=== PATIENT | male | born 1990 | race Caucasian/White ===

== ENCOUNTER 2021-11-18 04:00 | Outpatient (CLI) | payer MEDICAID | END 2021-11-18 04:01 | disposition critical access hospital (66) | LOC: EMS 04:00 | DX: R56.9 Unspecified convulsions (principal); R51.9 Headache, unspecified | CPT/HCPCS: A0425; A0427 ==

== ENCOUNTER 2021-11-18 04:16 | Emergency (ER) | payer MEDICAID ==
--- NOTE | 2021-11-18 04:23 | ED Physician Documentation ---
History of Present Illness - Stated complaint Stated Complaint: SEIZURE/LOC - History obtained from History obtained from: Patient, Friend (girlfriend (in ED at bedside)) - History of Present Illness Timing: Prior to arrival Pain level max: 0 Pain level now: 0 - Additonal information Additional information: patient is visiting [facility] with girlfriend. He is BIBA for seizure. He does not have seizure history. 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 EMS arrived and found patient to be awake and alert, mildly confused but subsequently oriented x 3 en route to ED. Patient confirms he has no seizure history. Does not consume alcohol on a heavy nor regular basis. No recent injury. He had moderate/severe headache after the seizure but this has resolved en route to ED as well. He says he feels well except generalized body aches which he did not have before the seizure. Review of Systems Constitutional: reports: Reviewed and negative Eyes: reports: Reviewed and negative Cardiac: reports: Reviewed and negative Respiratory: reports: Reviewed and negative GI: reports: Reviewed and negative Musculoskeletal: reports: Back pain (aching upper/mid back pain across the back). 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 denies: Generalized weakness, Focal weakness, Numbness, Head injury PD PAST MEDICAL HISTORY - Past Medical History Past Medical History: No - Past Surgical History Past Surgical History: No - Present Medications Home Medications: Ambulatory Orders Medication Instructions Recorded Confirmed No Known Home Medications 11/18/21 11/18/21 - Allergies Allergies/Adverse Reactions: Allergies Allergy/AdvReac Type Severity Reaction Status Date / Time No Known Drug Allergies Allergy Verified 11/18/21 04:26 - Social History Does the pt have substance abuse?: No PD ED PE NORMAL - Vitals Vital signs reviewed: Yes - General General: Alert and oriented X 3, No acute distress, Well developed/nourished - HEENT HEENT: Atraumatic, PERRL, EOMI, Moist mucous membranes, Other (tongue bite (abrasions with echymosis) on bilateral lateral aspects of tongue) - Neck Neck: Supple, no meningeal sign, No bony TTP - Cardiac Cardiac: RRR, No murmur - Respiratory Respiratory: No respiratory distress, Clear bilaterally - Abdomen Abdomen: Soft, Non tender - Neuro Neuro: Alert and oriented X 3, 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 2-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0 BUN 15 Creatinine 1.1 Estimated GFR (MDRD) 79 L Glucose 145 H Calcium 9.4 Total Bilirubin 0.6 AST 29 ALT 22 Alkaline Phosphatase 52 Total Protein 7.8 Albumin 4.6 Globulin 3.2 Albumin/Globulin Ratio 1.4 Lipase 57 H - Rads (name of study) CT head Radiology: Prelim report reviewed, See rad report PD MEDICAL DECISION MAKING - ED course Complexity details: reviewed results, re-evaluated patient, considered differential, d/w patient ED course: unprovoked new-onset seizure. Unremarkable CTH and blood tests. He is in NAD for ED stay. We discussed results of tests and need for follow-up. Seizure precautions discussed, with emphasis on no driving until cleared by either his PMD or neurology. Departure - Departure Disposition: 01 Home, Self Care Clinical Impression: Grand mal seizure Condition: Good Instructions: ED Seizure New Onset Unk Cause Comments: The results of tonight's tests are unremarkable. The cause of your seizure is not apparent at this time, although this is a common with a seizure without other concerning signs/symptoms (such as fever, weakness, numbness). You should follow up with your primary care provider; you might need further evaluation such as EEG and referral to neurology. Please adhere to the seizure precautions that are outlined in the discharge instructions in this packet (do not drive until you are cleared to do so by either your primary care provider or a neurologist. Do not take baths nor swim alone.) Discharge Date/Time: 11/18/21 07:17
[2021-11-18 05:07] LABS: BASOPHILS % (AUTO) 0.1 %; EOSINOPHILS % (AUTO) 0.3 %; HCT - HEMATOCRIT 40.1 % (42.0-52.0); HGB - HEMOGLOBIN 14.6 g/dL (14.0-18.0); LYMPHOCYTES % (AUTO) 11.2 %; MEAN CORPUSCULAR HEMOGLOBIN 32.1 pg (27.0-31.0); MEAN CORPUSCULAR HGB CONC 36.4 g/dL (32.0-36.0); MEAN CORPUSCULAR VOLUME 88.1 fL (80.0-94.0); MEAN PLATELET VOLUME 9.9 fL (7.4-11.4); MONOCYTES # (AUTO) 0.5 10^3/uL (0.0-1.0); NEUTROPHILS # (AUTO) 7.7 10^3/uL (1.5-6.6); PLT - PLATELET COUNT 199 10^3/uL (130-450); RED BLOOD COUNT 4.55 10^6/uL (4.70-6.10); RED CELL DISTRIBUTION WIDTH 11.5 % (12.0-15.0); WHITE BLOOD COUNT 9.3 x10^3/uL (4.8-10.8)
[2021-11-18 05:22] LABS: ALBUMIN 4.6 g/dL (3.2-5.5); ALBUMIN/GLOBULIN RATIO 1.4 (1.0-2.2); BILIRUBIN,TOTAL 0.6 mg/dL (0.2-1.0); CALCIUM 9.4 mg/dL (8.5-10.3); CREATININE 1.1 mg/dL (0.6-1.2); POTASSIUM 4.7 mmol/L (3.5-5.0); TOTAL PROTEIN 7.8 g/dL (6.7-8.2)
[2021-11-18 05:54] VITALS: BP 131/83
--- NOTE | 2021-11-18 08:17 | CT Report ---
PROCEDURE: HEAD WO INDICATIONS: new-onset seizure TECHNIQUE: Noncontrast 4.5 mm thick angled axial sections acquired from the foramen magnum to the vertex. For r adiation dose reduction, the following was used: automated exposure control, adjustment of mA and/or kV according to patient size. COMPARISON: None. FINDINGS: Image quality: Excellent. CSF spaces: Basal cisterns are patent. No extra-axial fluid collections. Ventricles are normal in size and shape. Brain: No midline shift. No intracranial masses or hemorrhage. Sullivan-white matter interface is norm al. Skull and face: Calvarium and visualized facial bones are intact, without suspicious lesions. Sinuses: Visualized sinuses and mastoids are clear. IMPRESSION: 1. No acute intracranial process. The above findings are concordant with preliminary report. Reviewed by: Margo Jackson MD on 11/18/2021 8:15 AM PDT Approved by: Margo Jackson MD on 11/18/2021 8:15 AM PDT Station ID: [id number]
== END 2021-11-18 07:17 | disposition home or self-care (01) ==
LOC: ED 04:16
DX: G40.409 Other generalized epilepsy and epileptic syndromes, not intractable, without status epilepticus (principal)
CPT/HCPCS: 36415; 80053; 83690; 85025; 99284